=== PATIENT | female | born 1960 | race Caucasian/White ===

== ENCOUNTER 2019-03-19 23:17 | Emergency (ER) | payer SELFPAY ==
[2019-03-19 23:25] VITALS: BP 133/93
== END 2019-03-20 00:49 | disposition left against medical advice (07) ==
LOC: ER 23:17
DX: Z53.21 Procedure and treatment not carried out due to patient leaving prior to being seen by health care provider (principal)

== ENCOUNTER 2019-06-14 08:40 | Emergency (ER) | payer BC ==
[2019-06-14] MEDS ORDERED: OXYCODONE-ACETAMINOPHEN 5-325 MG TABLET PO ONE (09:37)
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
[2019-06-14 11:31] VITALS: BP 122/88
== END 2019-06-14 11:34 | disposition home or self-care (01) ==
LOC: ER 08:40
DX: S42.252A Displaced fracture of greater tuberosity of left humerus, initial encounter for closed fracture (principal); Y04.8XXA Assault by other bodily force, initial encounter; F17.200 Nicotine dependence, unspecified, uncomplicated; R03.0 Elevated blood-pressure reading, without diagnosis of hypertension
CPT/HCPCS: 99283; 73030; L3650

== ENCOUNTER 2019-06-26 05:06 | Emergency (ER) | payer BC ==
[2019-06-26 05:55] VITALS: BP 116/77
== END 2019-06-26 05:55 | disposition left against medical advice (07) ==
LOC: ER 05:06
DX: Z53.21 Procedure and treatment not carried out due to patient leaving prior to being seen by health care provider (principal); M79.602 Pain in left arm

== ENCOUNTER 2020-03-24 23:49 | Emergency (ER) | payer BC ==
--- NOTE | 2020-03-25 00:19 | ER Document Report ---
ED Medical Screen (RME) - General Stated Complaint: ANXIETY,CHEST PAIN,ETOH Time Seen by Provider: 03/25/20 00:17 Notes: HPI: 59-year-old female brought in by EMS for evaluation of chest pain and palpitations tonight. Patient admits to drinking wine all day does not know how much she drank. Very tearful. Patient states she has had intermittent chest pain for several months has never had it evaluated by a electronic console display operator. Denies other significant medical issues. PHYSICAL EXAMINATION: Patient is tearful in the room. She is slurring her speech. She states that she does not have chest pain at this time. Lung sounds are clear to auscultation regular rate and rhythm. Informed by the nurse that after her examination in triage patient wants to leave. She appears clinically intoxicated. She may call a sober friend to come and sign her out AGAINST MEDICAL ADVICE if she chooses to do so I have greeted and performed a rapid initial assessment of this patient. A comprehensive ED assessment and evaluation of the patient, analysis of test results and completion of medical decision making process will be conducted by an additional ED providers. TRAVEL OUTSIDE OF THE [place] IN LAST 30 DAYS: No - Related Data Allergies/Adverse Reactions: No Known Allergies Allergy (Verified 06/26/19 05:17)
--- NOTE | 2020-03-25 07:53 | EKG REPORT ---
SEVERITY:- NORMAL ECG - SINUS RHYTHM : Confirmed by: Justen Don MD 25-Mar-2020 07:52:32
== END 2020-03-25 00:54 | disposition left against medical advice (07) ==
LOC: ER 23:49
DX: R07.9 Chest pain, unspecified (principal); R00.2 Palpitations; F10.129 Alcohol abuse with intoxication, unspecified; Z53.20 Procedure and treatment not carried out because of patient's decision for unspecified reasons
CPT/HCPCS: 93005; 93010; 99282